=== PATIENT | female | born 1950 | race Caucasian/White ===

== ENCOUNTER → 2024-04-19 07:48 | Outpatient (REF) | payer MEDICARE, OTHER, SELFPAY ==
[2024-04-19 10:27] LABS: Urine Albumin Negative (Neg - Trace); Urine Bilirubin Negative (Negative); Urine Character Clear (Clear); Urine Color Yellow; Urine Glucose Negative (Negative); Urine Ketone Negative (Negative); Urine Leukocyte 1+ (Negative); Urine Nitrite Negative (Negative); Urine Occult Blood Negative (Negative); Urine Urobilinogen Negative (Neg - 1+)
[2024-04-19 10:28] LABS: % Basophils 0.8 % (0-2); % Eosinophils 4.9 % (0-6); % Immature Granulocytes 0.3 % (0-0.5); % Lymphocytes 39.1 % (20.5-51.1); % Monocytes 8.2 % (1.7-9.3); % Neutrophils 46.7 % (42.2-75.2); Absolute Basophils 0.1 10^3/uL (0-0.2); Absolute Eosinophils 0.4 10^3/uL (0-0.7); Absolute Monocytes 0.6 10^3/uL (0.1-0.6); Absolute Neutrophils 3.6 10^3/uL (1.4-6.5); Hematocrit 39.4 % (37.0-47.0); Hemoglobin 13.5 g/dL (12.0-16.0); Mean Corp Hgb Conc. 34.3 g/dL (33.0-37.0); Mean Corpuscular Hgb 30.9 pg (27.0-31.0); Mean Corpuscular Volume 90.2 fL (81.0-99.0); Mean Platelet Volume 10.1 fL (7.4-10.4); Nucleated Red Blood Cells % 0 %; Platelet Count 238 10^3/uL (130-400); Red Blood Cell Count 4.37 10^6/uL (4.20-5.40); Red Cell Dist. Width 12.2 % (11.5-14.5); White Blood Cell Count 7.6 10^3/uL (4.8-10.8)
[2024-04-19 11:22] LABS: Urine Squamous Cell 26-30 /LPF (Few)
[2024-04-19 11:24] LABS: Urine Red Blood Cell 0-2 /HPF (0-2)
[2024-04-19 12:04] LABS: Glycohemoglobin (HgbA1c) 5.4 % (4.0-5.6)
[2024-04-19 12:22] LABS: ALT (SGPT) 19 U/L (0-35); AST (SGOT) 26 U/L (14-36); Albumin 4.3 g/dl (3.5-5.0); Alkaline Phosphatase 66 U/L (38-126); Blood Urea Nitrogen 17 mg/dl (7-17); Calcium 9.8 mg/dl (8.4-10.2); Carbon Dioxide 25 mmol/L (22-30); Chloride 105 mmol/L (98-107); Glucose 98 mg/dl (70-99); HDL Cholesterol 58 mg/dl; LDL Cholesterol, Calculated 168 mg/dl; Potassium 4.6 mmol/L (3.5-5.1); Sodium 139 mmol/L (135-145); Total Bilirubin 0.9 mg/dl (0.2-1.3); Total Cholesterol 242 mg/dl (50-199); Triglyceride 82 mg/dl (10-149); Very Low Density Lipoprotein 16 mg/dl (0-30); eGFR > 60.00
[2024-04-19 12:41] LABS: Total Thyroxine 8.24 ug/dl (5.5-11.0)
[2024-04-19 12:55] LABS: TSH 2.38 uIU/ml (0.47-4.68)
[2024-04-20 12:19] LABS: Total T3 (Sendout) 90 ng/dL (80-200)
== END ==
LOC: HWLAB 07:48
PROVIDERS: ATTENDING PHYSICIAN Family Medicine
DX: I10 Essential (primary) hypertension (principal); E03.9 Hypothyroidism, unspecified; E78.5 Hyperlipidemia, unspecified; R53.83 Other fatigue; N39.0 Urinary tract infection, site not specified; R79.89 Other specified abnormal findings of blood chemistry
CPT/HCPCS: 36415; 80053; 80061; 81003; 81015; 83036; 84436; 84443; 84480; 85025; 87086

== ENCOUNTER → 2024-06-16 14:57 | Outpatient (REF) | payer MEDICARE, OTHER, SELFPAY | LOC: RCS 14:57 | PROVIDERS: ATTENDING PHYSICIAN Nurse Practitioner; FAMILY PHYSICIAN Family Medicine | DX: I10 Essential (primary) hypertension (principal); R00.2 Palpitations; R06.02 Shortness of breath | CPT/HCPCS: 93306 ==